=== PATIENT | female | born 1990 | race Caucasian/White ===

== ENCOUNTER 2017-04-21 19:28 | Emergency (ER) | payer MEDICAID, OTHER ==
[2017-04-21 19:38] VITALS: BP 143/100
[2017-04-21] MEDS ORDERED: Sodium Chloride 0.9% 10 ML Syringe FLUSH PRN (20:23)
[2017-04-21] MEDS ORDERED: diphenhydrAMINE 50 MG/ML SDV IVPUSH ONE (20:23)
[2017-04-21] MEDS ORDERED: Sodium Chloride 0.9% 1,000 ML IV ONE (20:23)
[2017-04-21] MEDS ORDERED: Metoclopramide 10 MG/2 ML SDV IVPUSH ONE (20:23)
[2017-04-21] MEDS ORDERED: Sodium Chloride 0.9% 10 ML Syringe FLUSH ONE (20:59)
[2017-04-21] MEDS ORDERED: Iopamidol 612 MG/ML 50 ML SDV IVPUSH ONE (20:59)
--- NOTE | 2017-04-21 22:11 | EDM.PDOC ---
ED HPI GENERAL MEDICAL PROBLEM - General Chief Complaint: Headache Stated Complaint: HEADACHE NAUSEA Time Seen by Provider: 04/21/17 20:15 Source of Information: Reports: Patient History Limitations: Reports: No Limitations - History of Present Illness INITIAL COMMENTS - FREE TEXT/NARRATIVE: 26-year-old female presents for evaluation treatment of a headache. Patient reports that the headache is located across her entire head. Rates it as an 8 out of 10. She states that it started suddenly around 7 PM. Sounds as if she's had headaches over the last few months. She states this is the worst headache she's ever had. States she was watching a movie when it became severe. She reports associated symptoms of nausea, photophobia and phonophobia. She has also noticed weight gain of a few pounds over the last few months. She reports she is more fatigued than normal. No vomiting. Treatments prior to arrival include a hydrocodone 5-325. Patient states that she was previously on the Depo Provera injections. She stopped these as she thought this was causing her headaches. She now has the implanted contraceptives. She has not noticed any change with her headaches after starting the implant. Previously on amitriptyline for headaches but did not know some any relief. She does not have a menstrual cycle with her Implanon. Patient's boyfriend is at the bedside. He states they're very concerned about brain tumors or aneurysms. She does not have any family history of brain aneurysms that she knows of. They would like to get imaging tonight. They feel the headaches have been going on for a prolonged period of time and imaging is necessary at this point. Headache Pain Score (Numeric/FACES): 8 - Related Data Allergies Allergy/AdvReac Type Severity Reaction Status Date / Time No Known Allergies Allergy Verified 07/29/14 11:09 Home Meds: Home Meds Diarrhea Med 1 tab PO BID 04/21/17 [History] Headache Med 1 tab PO BEDTIME 04/21/17 [History] Levothyroxine [Synthroid] 50 mcg PO ACBREAKFAST #30 tablet 04/21/17 [Rx] Past Medical History - Past Health History Medical/Surgical History: Denies Medical/Surgical History Other Gastrointestinal History: diarrhea issues Other OB/BYN History: HPV Neurological History: Reports: Migraines Social & Family History - Tobacco Use Smoking Status *Q: Never Smoker - Caffeine Use Caffeine Use: Reports: Coffee Other Caffeine Use: 2-3 cans per day of mellow yellow - Alcohol Use Days Per Week of Alcohol Use: 0 - Recreational Drug Use Recreational Drug Use: No ED ROS GENERAL - Review of Systems Review Of Systems: See Below Constitutional: Reports: Fatigue, Weight Gain (a few pounds). Denies: Fever HEENT: Reports: Other (reports photophobia and phonophobia). Denies: Ear Pain, Sinus Problem, Throat Pain, Vision Change Respiratory: Denies: Cough GI/Abdominal: Reports: Nausea. Denies: Vomiting Musculoskeletal: Denies: Neck Pain Neurological: Reports: Dizziness, Headache. Denies: Seizure, Syncope, Trouble Speaking, Gait Disturbance - Physical Exam Exam: See Below Exam Limited By: No Limitations General Appearance: Alert, WD/WN, Mild Distress, Thin Eye Exam: Bilateral Eye: EOMI, Normal Inspection, PERRL Ears: Normal External Exam, Normal Canal, Hearing Grossly Normal, Normal TMs Nose: Normal Inspection Throat/Mouth: Normal Inspection, Normal Lips, Normal Voice, No Airway Compromise Head Exam: Atraumatic, Normocephalic Neck: Normal Inspection, Supple, Non-Tender, Full Range of Motion Respiratory/Chest: No Respiratory Distress, Lungs Clear, Normal Breath Sounds Cardiovascular: Normal Peripheral Pulses, Regular Rate, Rhythm, No Murmur Neuro Exam (Abbreviated): Alert, Oriented, CN II-XII Intact, Normal Cognition, Normal Gait, Other (normal finger to nose testing, normal heel to markham testing) Psychiatric: Normal Affect, Normal Mood Skin Exam: Warm, Dry, Normal Color Course - Vital Signs Last Recorded V/S: Last Vital Signs Temp 36.2 C 04/21/17 19:37 Pulse 73 04/21/17 22:20 Resp 16 04/21/17 22:20 BP 143/100 H 04/21/17 19:37 Pulse Ox 98 04/21/17 22:20 - Orders/Labs/Meds Orders: Active Orders 24 hr Category Date Time Status Peripheral IV Care [RC] . DIRECTED Care 04/21/17 20:25 Active Head w wo Cont [CT] Stat Exams 04/21/17 20:23 Taken Peripheral IV Insertion Adult [OM.PC] Routine Oth 04/21/17 20:23 Ordered Labs: Laboratory Tests 04/21/17 04/21/17 04/21/17 Range/Units 20:00 20:00 20:00 WBC 8.68 (3.98-10.04) K/mm3 RBC 4.86 (3.98-5.22) M/mm3 Hgb 14.6 (11.2-15.7) gm/L Hct 42.5 (34.1-44.9) % MCV 87.4 (79.4-94.8) fl MCH 30.0 (25.6-32.2) pg MCHC 34.4 (32.2-35.5) g/dl RDW Std Deviation 39.3 (36.4-46.3) fL Plt Count 250 (182-369) K/mm3 MPV 10.9 (9.4-12.3) fl Neut % (Auto) 51.0 (34.0-71.1) % Lymph % (Auto) 37.6 (19.3-51.7) % Price % (Auto) 9.7 (4.7-12.5) % Eos % (Auto) 1.4 (0.7-5.8) Baso % (Auto) 0.2 (0.1-1.2) % Neut # (Auto) 4.43 (1.56-6.13) K/mm3 Lymph # (Auto) 3.26 (1.18-3.74) K/mm3 Price # (Auto) 0.84 H (0.24-0.36) K/mm3 Eos # (Auto) 0.12 (0.04-0.36) K/mm3 Baso # (Auto) 0.02 (0.01-0.08) K/mm3 Sodium 142 (136-145) mEq/L Potassium 3.7 (3.5-5.1) mEq/L Chloride 105 (98-107) mEq/L Carbon Dioxide 28 (21-32) mEq/L Anion Gap 12.7 (5-15) BUN 9 (7-18) mg/dL Creatinine 1.1 H (0.55-1.02) mg/dL Est Cr Clr Drug Dosing 72.78 mL/min Estimated GFR (MDRD) > 60 (>60) mL/min BUN/Creatinine Ratio 8.2 L (14-18) Glucose 98 (74-106) mg/dL Calcium 9.0 (8.5-10.1) mg/dL Total Bilirubin 0.4 (0.2-1.0) mg/dL AST 25 (15-37) U/L ALT 34 (14-59) U/L Alkaline Phosphatase 63 (46-116) U/L Total Protein 8.2 (6.4-8.2) g/dl Albumin 4.3 (3.4-5.0) g/dl Globulin 3.9 gm/dL Albumin/Globulin Ratio 1.1 (1-2) Free T4 (0.76-1.46) ng/dL TSH 3rd Generation 8.678 H (0.358-3.74) uIU/mL HCG, Qual Negative (NEGATIVE) 04/21/17 Range/Units 20:00 WBC (3.98-10.04) K/mm3 RBC (3.98-5.22) M/mm3 Hgb (11.2-15.7) gm/L Hct (34.1-44.9) % MCV (79.4-94.8) fl MCH (25.6-32.2) pg MCHC (32.2-35.5) g/dl RDW Std Deviation (36.4-46.3) fL Plt Count (182-369) K/mm3 MPV (9.4-12.3) fl Neut % (Auto) (34.0-71.1) % Lymph % (Auto) (19.3-51.7) % Price % (Auto) (4.7-12.5) % Eos % (Auto) (0.7-5.8) Baso % (Auto) (0.1-1.2) % Neut # (Auto) (1.56-6.13) K/mm3 Lymph # (Auto) (1.18-3.74) K/mm3 Price # (Auto) (0.24-0.36) K/mm3 Eos # (Auto) (0.04-0.36) K/mm3 Baso # (Auto) (0.01-0.08) K/mm3 Sodium (136-145) mEq/L Potassium (3.5-5.1) mEq/L Chloride (98-107) mEq/L Carbon Dioxide (21-32) mEq/L Anion Gap (5-15) BUN (7-18) mg/dL Creatinine (0.55-1.02) mg/dL Est Cr Clr Drug Dosing mL/min Estimated GFR (MDRD) (>60) mL/min BUN/Creatinine Ratio (14-18) Glucose (74-106) mg/dL Calcium (8.5-10.1) mg/dL Total Bilirubin (0.2-1.0) mg/dL AST (15-37) U/L ALT (14-59) U/L Alkaline Phosphatase (46-116) U/L Total Protein (6.4-8.2) g/dl Albumin (3.4-5.0) g/dl Globulin gm/dL Albumin/Globulin Ratio (1-2) Free T4 0.86 (0.76-1.46) ng/dL TSH 3rd Generation (0.358-3.74) uIU/mL HCG, Qual (NEGATIVE) Meds: Medications Discontinued Medications Generic Name Dose Route Start Last Admin Trade Name Freq PRN Reason Stop Dose Admin Diphenhydramine HCl 50 mg 04/21/17 20:23 04/21/17 20:32 Benadryl IVPUSH 04/21/17 20:24 50 mg ONETIME ONE Administration Sodium Chloride 1,000 mls @ 999 mls/hr 04/21/17 20:23 04/21/17 20:33 Normal Saline IV 04/21/17 21:23 999 mls/hr ONETIME ONE Administration Iopamidol 50 ml 04/21/17 20:59 04/21/17 21:26 Isovue-300 (61%) IVPUSH 04/21/17 21:00 50 ml ONETIME ONE Administration Metoclopramide HCl 5 mg 04/21/17 20:23 04/21/17 20:32 Reglan IVPUSH 04/21/17 20:24 5 mg ONETIME ONE Administration Sodium Chloride 10 ml 04/21/17 20:23 04/21/17 20:32 Saline Flush FLUSH 10 ml ASDIRECTED PRN Administration Keep Vein Open Sodium Chloride 10 ml 04/21/17 20:59 04/21/17 21:26 Saline Flush FLUSH 04/21/17 21:00 10 ml ONETIME ONE Administration - Radiology Interpretation Free Text/Narrative:: CT of the head with and without IV contrast impression for [facility] no evidence of acute hemorrhage, mass effect or mass. No abnormal intracranial enhancement. CT Results Date: 04/21/17 - Re-Assessments/Exams Free Text/Narrative Re-Assessment/Exam: 04/21/17 20:30 Patient and her boyfriend would like to proceed with a CT they are very concerned about aneurysms and masses.will Obtain a CT of the head with and without contrast to rule out aneurism rupture and mass. I did educate them that these rule out acute abnormalities. If They're concerned about an aneurysm she may require additional testing to evaluate if she does have an aneurysm. She has no family history of aneurysms. 04/21/17 21:45 Headache at this time as a 6 out of 10. She feels it is improving. We are awaiting the CT results. 04/21/17 22:08 Labs returned. White blood cell count is 8.68, hemoglobin 14.6 and platelets 250. HCG is negative. Sodium 142, potassium 3.7 chloride 105. Creatinine 1.1. Glucose 98. TSH is high at 8.678. Free T4 is within normal of 0.86. I reviewed the labs and head CT with the kareem. Will start levothyroxine for hypothyroidism. Headache at this time is now a 4 out of 10. I offered additional medication. She states that she feels comfortable going home and would like to go home at this time. Discharge instructions as documented. Departure - Departure Time of Disposition: 22:05 Disposition: Home, Self-Care 01 Condition: Fair Clinical Impression: Headache - Discharge Information Prescriptions: Levothyroxine [Synthroid] 50 mcg PO ACBREAKFAST #30 tablet Instructions: General Headache Without Cause Referrals: Nely Lainez FRAME TABLE OPERATOR [Primary Care Provider] - Forms: ED Department Discharge Additional Instructions: go home and rest in a dark quiet room. Make sure you are drinking plenty of fluids. [id number] Tylenol or motrin as needed for additional headache relief. Start the levothyroxin 1 tab daily. Follow-up with your primary care provider in 2 weeks for a recheck of your symptoms. Please return to ER if her symptoms change or worsen. - My Orders Last 24 Hours: My Active Orders 04/21/17 20:23 Head w wo Cont [CT] Stat Peripheral IV Insertion Adult [OM.PC] Routine 04/21/17 20:25 Peripheral IV Care [RC] . DIRECTED - Assessment/Plan Last 24 Hours: My Active Orders 04/21/17 20:23 Head w wo Cont [CT] Stat Peripheral IV Insertion Adult [OM.PC] Routine 04/21/17 20:25 Peripheral IV Care [RC] . DIRECTED
--- NOTE | 2017-04-22 06:50 | CT ---
Head CT - with and without contrast Technique: Multiple axial sections through the brain were obtained. Intravenous contrast was not utilized. Repeat imaging then performed with contrast. Findings: Ventricles along with basal cisterns and sulci over the convexities are within normal limits for the patient's age. No abnormal parenchymal densities are seen. No evidence of intracranial hemorrhage. No midline shift or mass effect is seen. Small scalp lesion is identified off the left frontal convexity. Bone window settings show no acute calvarial abnormality. Visualized sinuses are clear. No abnormal areas of enhancement are seen. Impression: 1. Incidental scalp lesion off the left frontal convexity. 2. No acute intracranial abnormality is identified. Diagnostic code #2 I agree with preliminary report issued by [facility] ([facility] report finalized on 04/21/17, 10:30 PM Central Time)
== END 2017-04-21 22:20 | disposition home or self-care (01) ==
LOC: JD.ED 19:28
DX: R51 Headache (principal)
CPT/HCPCS: 36415; 70470; 80053; 84439; 84443; 84703; 85025; 96361; 96374; 96375; 99284; J1200; J2765; J7040; J7050; Q9967